=== PATIENT | female | born 1990 | race Caucasian/White ===

== ENCOUNTER 2024-05-15 00:52 | Inpatient (IN) | payer OTHER, SELFPAY ==
--- OUTSIDE RECORDS SUMMARY | 2024-05-14 21:56 | XMS_ITS | Clinical Summary ---
Author Organization [facility] Address [place], [place] [address] Care Team Providers Care Social Services Technician Name Role Phone BrunaPetrona MD Primary Care Provider Allergies No known active allergies Medications Medication Sig Dispensed Refills Start Date End Date Status albuterol HFA (PRO-AIR,VENTOLIN,PRO VENTIL) 90 mcg/actuation inhalerIndications:Co ugh Inhale 1-2 Puffs by mouth every 4 hours if needed. 1 Inhaler 5 05/30/2015 Active Breast Pump - PurchaseIndications:A t risk for ineffective Electric breast pump for home use. Gestation age at delivery: 40 weeks. Reason for need: return to work. Length of need: 12 months 1 unit 03/01/2019 Active vits62/FA/om3/dha/epa ( GUMMY ORAL) Take by mouth. Active Active Problems Problem Noted Date Diagnosed Date Pap smear for cervical cancer screening 10/28/19 Overview: 10/2023 NIL/HPV negative Plan: Pap/HPV due 10/2028 Encounter for supervision of normal in first trimester 10/20/2023 10/07/2023 Overview: Estimated Date of Delivery: 05/17/24 Patient's last menstrual period was 08/11/2023 (exact date). GBS- Vaginal/Rectal OB Strep B PCR Date Value Ref Range Status 04/19/2024 Negative Final 28wk labs- GLUCOSE,GESTATIONAL Date Value Ref Range Status 02/10/2024 128 70 - 139 mg/dL Final HEMOGLOBIN Date Value Ref Range Status 02/10/2024 11.7 (L) 12.0 - 16.0 g/dL Final TREPONEMA PALLIDUM Date Value Ref Range Status 02/10/2024 Non-Reactive Non-Reactive Final Last Tdap- 03/08/24 Last Flu vaccine- 2021 OB Labs: ABORH Date Value Ref Range Status 10/06/2023 A Rh Positive Final ANTIBODY SCREEN Date Value Ref Range Status 10/06/2023 Negative Negative Final TREPONEMA PALLIDUM Date Value Ref Range Status 10/06/2023 Non-Reactive Non-Reactive Final RUBELLA IGG ANTIBODY Date Value Ref Range Status 10/06/2023 8.26 >=1.00 Index Final INTERPRETATION Date Value Ref Range Status 10/06/2023 Positive Final Comment: Presence of detectable IgG antibodies. A positive result generally indicates exposure to the virus or previous vaccination, but is not an indication of active infection or stage of disease. HBSAG Date Value Ref Range Status 10/06/2023 Nonreactive Nonreactive Final HEPATITIS C ANTIBODY Date Value Ref Range Status 10/06/2023 Non-Reactive Non-Reactive Final Comment: Please note, per www.CDC.gov: If a patient is known to be at high risk of HCV infection, or is symptomatic, and the physician's suspicion of HCV infection is high, HCV RNA testing is often employed and is of diagnostic value, even after an initial negative anti-HCV test result. HIV-1/HIV-2 SCREEN Date Value Ref Range Status 10/06/2023 Non-Reactive Non-Reactive Final Comment: HIV-1 p24 and HIV-1/HIV-2 Ab Not Detected. HEMOGLOBIN Date Value Ref Range Status 10/06/2023 13.0 12.0 - 16.0 g/dL Final PLATELET COUNT Date Value Ref Range Status 10/06/2023 307 140 - 440 thou/cu mm Final Not on File OB History Para Term AB Living 2 1 1 0 0 1 SAB IAB Ectopic Multiple Live Births 0 0 0 0 1 # Outcome Date GA Lbr Michelet/2nd Weight Sex Delivery Anes PTL Lv 2 Current 1 Term 03/07/19 39w3d 3.23 kg (7 lb 2 oz) F Vag EPIDURAL N GIANCARLO Name: Gordon Past Medical History: . Date Asthma exercise induced H/O cold sores 10/25/2014 Varicella 1996 Past Surgical History: . Laterality Date WISDOM TEETH EXTRACTION 2007 #2 Problems (from 10/06/23 to present) No problems associated with this episode. Kate Epstein RN ....10/07/2023 11:25 AM H/O cold sores 10/25/2014 Estimated Date of Delivery Comme nts Yes 05/17/2024 Resolved Problems Problem Noted Date Diagnosed Date Resolved Date Encounter for supervision of normal first , third trimester 09/12/2018 10/07/2023 08/22/2018 10/07/2023 Overview: Component Latest Ref Rng & Units 02/16/2019 HEMOGLOBIN 12.0 - 16.0 g/dL 13.2 MCV 80 - 100 fL 95 Culture No Group B Streptococcus isolated. TREPONEMA PALLIDUM Negative Negative Estimated Date of Delivery: 03/11/19 Patient's last menstrual period was 06/04/2018. Last Tdap- 01/05/2019 Last Flu vaccine- 08/18/2018 Glucose (GTT) result- Component Latest Ref Rng & Units 12/08/2018 HEMOGLOBIN 12.0 - 16.0 g/dL 12.3 MCV 80 - 100 fL 98 GLUCOSE,GESTATIONAL 65 - 139 mg/dL 130 20 week US: IMPRESSION: 1.Cephalic presentation. 2.No intrinsic abnormalities noted on anatomic survey. 3.Composite ultrasound age 21 weeks 1 day with ALEK of 03/07/2019 with an earlier established ALEK of 03/11/2019. No Known Allergies Obstetric History T0 L0 SAB0 TAB0 Ectopic0 Multiple0 Live Births0 # Outcome Date GA Lbr Michelet/2nd Weight Sex Delivery Anes PTL Lv 1 Current Create lab flowsheet for OB labs- Component Latest Ref Rng & Units 07/26/2018 07/26/2018 07/26/2018 2:45 PM 2:45 PM 2:45 PM ANTIBODY SCREEN Negative Negative SPECIMEN EXPIRATION DATE/TIME 07/29/18 23:59 HEMOGLOBIN 12.0 - 16.0 g/dL 13.6 MCV 80 - 100 fL 96 RUBELLA IGG ANTIBODY Positive 3.51 HEMOGLOBIN A1C SCREENING <6.4 % 5.1 ABORH A Rh Positive HBSAG Nonreactive Nonreactive HEPATITIS C ANTIBODY Non-Reactive Non-Reactive HIV-1/HIV-2 ANTIBODY Non-Reactive Non-Reactive TREPONEMA PALLIDUM Negative Negative Past Medical History: Diagnosis Date ? ? H/O cold sores 10/25/2014 Past Surgical History: Procedure Laterality Date ? ? NO PREVIOUS SURGERY No data on file. Problems (from 07/26/18 to present) No problems associated with this episode. CHANDA Ash.....08/22/2018 8:04 AM Encounters Date Type Department Care Team Description 05/10/2024 4:05 PM CDT OB Encounter [facility] [address] [place] [address] Kayla Wisdom DO Care (39 weeks) 05/10/2024 Travel 05/03/2024 4:30 PM CDT OB Encounter [facility] [address] [place] [address] Petrona Mcfarland MD Care (38 weeks 0 days) 05/03/2024 Travel 05/02/2024 Telephone [facility] [address] [facility] [place] [address] Petrona Mcfarland MD 05/02/2024 Nurse Triage [facility] [address] [facility] [place] [address] Petrona Mcfarland MD Abdominal Pain 04/26/2024 10:55 AM CDT OB Encounter [facility] [address] [facility] [place] [address] Petrona Mcfarland MD Care (37 weeks ) 04/26/2024 Travel 04/19/2024 4:30 PM CDT OB Encounter [facility] [address] [facility] [place] [address] Petrona Mcfarland MD Care (36w/) 04/19/2024 Travel 04/04/2024 4:05 PM CDT OB Encounter [facility] [address] [place] [address] Petrona Mcfarland MD Care 04/04/2024 Travel 03/22/2024 11:20 AM CDT OB Encounter [facility] [address] [place] [address] Petrona Mcfarland MD Care (32 weeks 0 days ) 03/22/2024 Travel 03/08/2024 1:35 PM CDT OB Encounter [facility] [address] [place] [address] [address] Petrona Mcfarland MD Care (30 WKS - will get tdap) 03/08/2024 Travel from Last 3 Months Immunizations Name Administration Dates Next Due AMB Influenza, IIV4 PF (=>6 mos Flulaval,Fluzone Fluarix)(Flu Clinic Only) 07/09/2019 DTaP 02/06/1996,08/09/1991,05/25/1991 Hepatitis A (Adult) 06/02/2015 Hib Conjugate, Unspecified 11/08/2006,08/09/1991 ,05/25/1991 Inactivated Polio Vaccine 02/06/1996,08/09/1991, 05/25/1991 Influenza, IIV4 09/03/2022,07/04/2020,08/18/2018 Influenza, IIV4 (=>6mos) MDV 07/20/2021 MMR 11/12/2019,02/06/1996 Meningococcal Vaccine (Menactra) 08/19/2009 Meningococcal Vaccine (Menomune) 05/21/2004 Tdap 03/08/2024,01/05/2019,10/25/2014 Family History Medical History Relation Name Comments Good Health Brother Good Health Daughter Coronary artery disease Father 3v C ABG, stent placed Heart Disease Father 3 v CABG; sten ting Hyperlipidemia Father Hypertension Father Cancer Maternal Aunt Dementia Maternal Grandfather Stroke Maternal Grandfather Good Health Maternal Grandmother Deep vein thrombosis Mother Pulmonary embolism Mother Valvular heart disease Mother pablito l valve replacement Heart Disease Paternal Grandmother Depression Sister 1 Good Health Sister 2 Relation Name Status Comments Brother Alive Daughter Alive Father Alive Maternal Aunt Maternal Grandfather Alive Maternal Grandmother Alive Mother Alive Paternal Grandfather (Age 50's) ?lung cancer Paternal Grandmother (Age 83) he art failure? Sister 1 Alive Sister 2 Alive Social History Tobacco Use Types Packs/Day Years Used Date Smoking Tobacco: Never Smokeless Tobacco: Never Tobacco Cessation:Counseling Given: Yes Alcohol Use Standard Drinks/Week Comments Not Currently 0 (1 standard drink = 0.6 oz pur e alcohol) social PHQ-2 Answer Date Recorded PHQ-2 TOTAL SCORE 0 04/26/2024 Social Connections Answer Date Recorded Frequency of Communication with Friends and Fami ly Not on file 04/16/2023 Financial Resource Strain Answer Date R ecorded Difficulty of Paying Living Expenses Not on file 10/03/2021 Difficulty of Paying Living Expenses Not on file 10/03/2021 Estimated Date of Delivery Comme nts Yes 05/17/2024 Sex and Gender Information Value Date Recorded Sex Assigned at Not on file Gender Identity Not on file Sexual Orientation Not on file Obstetrics History Para Term AB IAB SAB Ectopic Multiple Livin g Live Births 2 1 1 0 0 0 0 0 0 1 1 Date Outcome GA Total Labor Labor/2nd/3rd Weight Sex Type Anes PTL Giancarlo A1 A5 Name Clin 2018 Term 39w 3d 17h 00m 3.23 kg (7 lb 2 oz) F Vag Epidur al N Livin g Gordon Tappe r Complications:None Delivery Location:[facility] Current Summary Episode Dates Number of Fetuses Estimated Date of Delivery 10/06/2023 - Present (05/14/2024) 05/17/2024 (set by Kate Epstein, RN on 10/06/2023 based on Alternate ALEK Entry) Dating Summary Based On ALEK GA Diff Last Menstrual Period on 08/11/2023 (Exact Date) 05/17/2024 Same Alternate ALEK Entry 05/17/2024 Working Overview and Plan Delivery Plans Planned delivery method:Vaginal Planned anesthesia:Epidural Vitals Pregravid Weight Height TWG (As of 05/14/2024) Pregrav id BMI 1.664 m (5' 5.5) Notes Progress Notes - OB Encounte r - 05/10/2024 - GA:39w0d 05/10/2024 - 39w0d - Kayla Wisdom DO Patient is here for routine care at 39w0d -specific issues: None Concerns today: has noticed some intermittent sharp pelvic discomfort. Occasional cramping. Nothing that feels particularly like contractions. No bleeding or loss of fluid Baby is moving well Discussed signs/symptoms of labor and when to call RTC in 1 week. Kayla Wisdom DO .................... 05/10/2024 4:29 PM Progress Notes - OB Encounte r - 05/03/2024 - GA:38w0d 05/03/2024 - 38w0d - Petrona Mcfarland MD SUBJECTIVE: Zacarias Najera is a 33 y.o. female at 38 weeks. Had sharp minute long episodes of pelvic pain yesterday from 9am to 1 pm. Was also having pelvic pressure. Since then discomfort resolved. No other concerns. See visit comments. OBJECTIVE: see OB vitals flow sheet ASSESSMENT : 38 weeks gestation with no complications PLAN: Labor signs and symptoms reviewed with patient including painful regular contractions or leaking fluid. RTC 1 weeks. Petrona Mcfarland MD .................... 05/03/2024 4:31 PM Progress Notes - OB Encounte r - 04/26/2024 - GA:37w0d 04/26/2024 - 37w0d - Petrona Mcfarland MD SUBJECTIVE: Zacarias Najera is a 33 y.o. female at 37 weeks. No concerns. See visit comments. OBJECTIVE: see OB vitals flow sheet ASSESSMENT : 37 weeks gestation with no complications Labor signs and symptoms reviewed with patient including painful regular contractions or leaking fluid. RTC 1 weeks. Petrona Mcfarland MD .................... 04/26/2024 11:15 AM Progress Notes - OB Encounte r - 04/19/2024 - GA:36w0d 04/19/2024 - 36w0d - Petrona Mcfarland MD SUBJECTIVE: Zacarias Najera is a 33 y.o. female at 36 weeks. No concerns. See visit comments. OBJECTIVE: see OB vitals flow sheet ASSESSMENT : 36 weeks gestation with no complications PLAN: Labor signs and symptoms reviewed with patient including painful regular contractions or leaking fluid. GBS today RTC 1 weeks. Petrona Mcfarland MD .................... 04/19/2024 4:43 PM Progress Notes - OB Encounte r - 04/04/2024 - GA:33w6d 04/04/2024 - 33w6d - Petrona Mcfarland MD SUBJECTIVE: Zacarias Najera is a 33 y.o. female at 33+6 weeks. No concerns. See visit comments. OBJECTIVE: see OB vitals flow sheet ASSESSMENT : 33+6 weeks gestation with no complications PLAN: labor signs and symptoms reviewed with patient including pain, cramping, bleeding or leaking fluid. RTC 2 weeks. Petrona Mcfarland MD .................... 04/04/2024 4:10 PM Progress Notes - OB Encounte r - 03/22/2024 - GA:32w0d 03/22/2024 - 32w0d - Petrona Mcfarland MD SUBJECTIVE: Zacarias Najera is a 33 y.o. female at 32 weeks. She woke with sciatic pain yesterday morning, it did improve as the day went on. No concerns. See visit comments. OBJECTIVE: see OB vitals flow sheet ASSESSMENT : 32 weeks gestation with no complications PLAN: labor signs and symptoms reviewed with patient including pain, cramping, bleeding or leaking fluid. RTC 2 weeks. Petrona Mcfarland MD .................... 03/22/2024 11:23 AM Progress Notes - OB Encounte r - 03/08/2024 - GA:30w0d 03/08/2024 - 30w0d - Petrona Mcfarland MD SUBJECTIVE: Zacarias Najera is a 33 y.o. female at 30 weeks. No concerns. See visit comments. OBJECTIVE: see OB vitals flow sheet ASSESSMENT : 30 weeks gestation with no complications PLAN: labor signs and symptoms reviewed with patient including pain, cramping, bleeding or leaking fluid. TDaP given today. RTC 2 weeks. Petrona Mcfarland MD .................... 03/08/2024 1:44 PM Progress Notes - OB Encounte r - 02/10/2024 - GA:26w1d 02/10/2024 - 26w1d - Petrona Mcfarland MD SUBJECTIVE: Zacarias Najera is a 33 y.o. female at 26+1 weeks. Has been having nocturnal leg cramps. No other concerns. See visit comments. OBJECTIVE: see OB vitals flow sheet ASSESSMENT : 26+1 weeks gestation with no complications PLAN: labor signs and symptoms reviewed with patient including pain, cramping, bleeding or leaking fluid. Diabetes, hemoglobin and syphilis screening today. RTC 4 weeks with TDaP. Petrona Mcfarland MD .................... 02/10/2024 2:56 PM Progress Notes - OB Encounte r - 01/13/2024 - GA:22w1d 01/13/2024 - w1d - Petrona Mcfarland MD SUBJECTIVE: Zacarias Najera is a 33 y.o. female at 22+1 weeks. No concerns. Baby is very active, change from last when she had an anterior placenta. See visit comments. OBJECTIVE: see OB vitals flow sheet ASSESSMENT : 22+1 weeks gestation with no complications PLAN: labor signs and symptoms reviewed with patient including pain, cramping, bleeding or leaking fluid. RTC 4 weeks with diabetes, hemoglobin and syphilis screening. Petrona Mcfarland MD .................... 01/13/2024 2:42 PM Progress Notes - OB Encounte r - 12/15/2023 - GA:18w0d 12/15/2023 - 18w0d - Petrona Mcfarland MD SUBJECTIVE: Zacarias Najera is a 32 y.o. female at 18 weeks. No concerns. See visit comments. OBJECTIVE: see OB vitals flow sheet ASSESSMENT : 18 weeks gestation with no complications PLAN: labor signs and symptoms reviewed with patient including pain, cramping, bleeding or leaking fluid. RTC 4 weeks. ultrasound in 2 weeks. Petrona Mcfarland MD .................... 12/15/2023 11:44 AM Progress Notes - OB Encounte r - 11/17/2023 - GA:14w0d 11/17/2023 - w0d - Petrona Mcfarland MD SUBJECTIVE: Zacarias Najera is a 32 y.o. female at 14 weeks. Has reoccurrence of left ear plugging. No concerns. See visit comments. OBJECTIVE: see OB vitals flow sheet TM with serous effusion on the left ASSESSMENT : 14 weeks gestation with no complications PLAN: Warning signs and symptoms reviewed with patient including pain, cramping, bleeding or leaking fluid. Try antihistamine for middle ear infusion. RTC 4 weeks. 20 week ultrasound ordered. Petrona Mcfarland MD .................... 11/17/2023 10:53 AM TER Progress Notes - OB Encounte r - 10/20/2023 - GA:10w0d 10/20/2023 - 10w0d - Petrona Mcfarland MD Images from the original note were not included. FIRST OB VISIT HPI: Zacarias Najera is a 32 y.o. female at 10w0d with lawton intrauterine here today for a initial OB exam. Estimated due date is Estimated Date of Delivery: 05/17/24 based on LMP and confirmed with ultrasound 10/20/2023. Nausea/Vomiting: yes, but getting better Breast tenderness: yes Fatigue: yes Bleeding: no Taking vitamins: yes Options of sequential screen, cell-free DNA testing, amniocentesis were discussed. Patient is interested in pursuing testing. Will check with insurance and let me know. AMA: no Previous : no OB History Para Term AB Living 2 1 1 0 0 1 SAB IAB Ectopic Multiple Live Births 0 0 0 0 1 # Outcome Date GA Lbr Michelet/2nd Weight Sex Delivery Anes PTL Lv 2 Current 1 Term 03/07/19 39w3d 3.23 kg (7 lb 2 oz) F Vag EPIDURAL N GIANCARLO Past Medical History: . Date Asthma exercise induced H/O cold sores 10/25/2014 Varicella 1996 Past Surgical History: . Laterality Date WISDOM TEETH EXTRACTION 2007 Family History Problem Relation Age of Onset Valvular heart disease Mother 63 mitral valve replacement Pulmonary embolism Mother Deep vein thrombosis Mother Heart Disease Father 46 3 v CABG; stenting Hypertension Father Coronary artery disease Father 3v CABG, stent placed Hyperlipidemia Father Depression Sister Good Health Sister Good Health Brother Good Health Daughter Cancer Maternal Aunt Good Health Maternal Grandmother Stroke Maternal Grandfather Dementia Maternal Grandfather Heart Disease Paternal Grandmother Social History Tobacco Use Smoking status: Never Smokeless tobacco: Never Substance Use Topics Alcohol use: Not Currently Comment: social Current Outpatient Medications Medication Sig albuterol HFA (PRO-AIR,VENTOLIN,PROVENTIL) 90 mcg/actuation inhaler Inhale 1-2 Puffs by mouth every 4 hours if needed. Breast Pump - Purchase Electric breast pump for home use. Gestation age at delivery: 40 weeks. Reason for need: return to work. Length of need: 12 months vits62/FA/om3/dha/epa ( GUMMY ORAL) Take by mouth. No current facility-administered medications for this visit. Medications have been reviewed by me and are current to the best of my knowledge and ability. ALLERGIES Patient has no known allergies. MENTAL HEALTH HISTORY History of psychiatric diagnosis: None Current mental health provider: not applicable Currently taking any psychiatric medications? Not Applicable INFECTION HISTORY Current Drug Use: none Relevant infection history from OB Questionnaire: none REVIEW OF SYSTEMS Comprehensive ROS complete and negative other than noted in HPI and on OB Questionnaire. PHYSICAL EXAM BP 119/80 (Cuff Site: Right Arm, Position: Sitting, Cuff Size: Adult Regular) Pulse 79 Ht 1.664 m (5' 5.5) Wt 68.3 kg (150 lb 9.6 oz) LMP 08/11/2023 (Exact Date) SpO2 100% BMI 24.68 kg/m?? General Appearance: Alert, appropriate appearance for age. No acute distress. HEENT Exam: Grossly normal. Neck/Thyroid Exam: Supple, no masses, nodes or enlargement. Lungs: Clear to auscultation bilaterally. Breast Exam: Not indicated. Cardiovascular Exam: Regular rate and rhythm. S1, S2, no murmur. Abd: Soft, non-tender, no masses or organomegaly. Skin: no rashes or lesions. Lymphatics: no nodes palpable. Psychiatric Exam: Alert and oriented x 3, appropriate affect. Pelvic Exam Vulva and vagina appear normal. Cervix closed, long. Uterus: 10 wk sz, nontender. Adnexa: not palpable. Pelvimetry: Adequate pelvis. ASSESSMENT/PLAN 32 y.o. at 10w0d with lawton intrauterine . ICD-10-CM 1. Encounter for supervision of other normal in first trimester Z34.81 2. 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 Demonstrates appropriate and health-seeking behaviors toward her . Verbalizes good understanding of care schedule and the importance of coming to each visit as scheduled. Start/continue vitamins. Reviewed labs. She was encouraged to call the office with any questions or concerns. Body mass index is 24.68 kg/m??. Diet and expected weight gain discussed with patient. DEPRESSION SCREEN No data to display Intervention: Not Depressed Petrona Mcfarland MD TER Progress Notes - OB Encounte r - 10/06/2023 - GA:8w0d 10/06/2023 - 8wd - Kate Epstein RN SUBJECTIVE: Zacarias Najera is a 32 y.o. female, , who presents for confirmation and ob education. Patient presents to the clinic with daughter. Had positive test at home. This was Planned, Desired. Patient was not on contraception. Date Reliability: definite ALEK based on LMP: Estimated Date of Delivery: 05/17/24 Current symptoms include: Nausea:Yes Vomiting:No Breast tenderness:No Vaginal bleeding:No Vaginal discharge:No Pelvic cramping:Yes brief, mild, very occasional Fatigue:Yes Previous Delivery Type: normal vaginal delivery Occupation of patient: Dental Hygienist Name of Partner or Father of baby: Ronni. MENSTRUAL HISTORY: Patient's last menstrual period was 08/11/2023 (exact date).: Cycle Regularity: regular, every 24 days Past Medical History: . Date H/O cold sores 10/25/2014 OB History Para Term AB Living 2 1 1 0 0 1 SAB IAB Ectopic Multiple Live Births 0 0 0 0 1 # Outcome Date GA Lbr Michelet/2nd Weight Sex Delivery Anes PTL Lv 2 Current 1 Term 03/07/19 39w3d 3.23 kg (7 lb 2 oz) F Vag EPIDURAL N GIANCARLO 5P'S SUBSTANCE ABUSE SCREEN FOR ALCOHOL, DRUGS AND TOBACCO: Did any of your parents have a problem with using alcohol or drugs? Yes Dad- alcohol in past Do any of your friends (peers) have problems with drug or alcohol use? No Does your partner have a problem with drug or alcohol use? No Before you knew you were , how often did you drink beer, wine, wine coolers or liquor or use any kind of drug? Rarely In the past month, how often did you drink beer, wine, wine coolers or liquor or use any kind of drug? Not at all How much did you smoke, vape or use tobacco or nicotine in any form before you knew you were ? Don't Smoke, Vape or use Tobacco Genetic Screening No data filed CURRENT MEDICATIONS: Current Outpatient Medications Medication Sig albuterol HFA (PRO-AIR,VENTOLIN,PROVENTIL) 90 mcg/actuation inhaler Inhale 1-2 Puffs by mouth every 4 hours if needed. Breast Pump - Purchase Electric breast pump for home use. Gestation age at delivery: 40 weeks. Reason for need: return to work. Length of need: 12 months drospirenone-ethinyl estradioL (TOSIN) 3-0.03 mg tablet Take 1 Tablet by mouth once daily. drospirenone-ethinyl estradioL (TOSIN) 3-0.03 mg tablet Take 1 tablet by mouth once daily. vits62/FA/om3/dha/epa ( GUMMY ORAL) Take by mouth. No current facility-administered medications for this visit. Medications have been reviewed by me and are current to the best of my knowledge and ability. ALLERGIES: Patient has no allergy information on record. OBJECTIVE: LMP 08/11/2023 (Exact Date) No results found for: PREGURINE ASSESSMENT/PLAN: ICD-10-CM 1. Encounter for supervision of other normal in first trimester Z34.81 EDUCATION/PATIENT INSTRUCTIONS - Advised patient to start/continue vitamin. - Discussed risk of using alcohol, tobacco, other drugs in . - Discussed healthy lifestyle in . - Provided copy of Beginnings book and book inserts, discussed [id number] medications, and follow up. - Encouraged patient to call clinic at [phone] with any vaginal bleeding, fluid leaking from vagina, severe abdominal pain, nausea with severe vomiting, fever higher than 100.4F, painful urination, headache not relieved by Tylenol, or other concerns - labs completed with today's visit. - Patient informed to schedule 1st trimester dating ultrasound between 7-10 weeks. - Initial OB appointment with FP/OB scheduled. PHQ-9, and COVID-19 vaccine discussion to be completed at this visit. Future Appointments Date Time Provider Department Center 10/20/2023 9:15 AM Petrona Mcfarland MD [facility] Kate Epstein RN .................... 10/06/2023 11:12 AM TER Last Filed Vital Signs Vital Sign Reading Time Taken Comments Blood Pressure 119/71 05/10/2024 4:01 PM CDT Pulse 73 05/10/2024 4:01 PM CDT Temperature 36.8 ??C (98.3 ??F) 10/31/2023 6:54 PM CS T Respiratory Rate 14 10/31/2023 6:54 PM [facility]STER Oxygen Saturation 99% 05/03/2024 4:26 PM CDT Inhaled Oxygen Concentration - - Weight 82.4 kg (181 lb 9.6 oz) 05/10/2024 4:01 P M CDT Height 166.4 cm (5' 5.5) 10/20/2023 9:04 AM W[facility]STER Body Mass Index 29.76 10/20/2023 9:04 AM WRISTER Plan of Treatment Upcoming Encounters Date Type Department Care Team (Late st Contact Info) Description 05/17/2024 4:05 PM CDT OB Encounter [facility] [address] [place] [place] [address] Petrona Mcfarland MD [address] [place] [address] Health Maintenance Due Date Last Done Comments COVID-19 vaccine series (2022-24 season) 2023 Influenza for age 9-49 06/03/2024 2, 07/20/2021, 07/04/2020, Additional history exists BMI (ht and wt on same day) for age 18+ 10/20/2024 10/20/2023, 10/06/2023, 07/04/2020, Additional history exists Depression screening for age 12+ 04/26/2025 04/26/2024, 04/17/2019, 07/28/2018, Additional history exists Pap test for age 21-65 10/20/2028 , 10/20/2023, 04/17/2019, Additional history exists Tetanus booster 03/08/2034 03/08/2024, 04/0 01/2019, 10/25/2014 HIV for age 15-65 Completed 10/06/2023, 07/26/2018 Hepatitis C screening for age 18-79 Completed 10/06/2023, 07/26/2018 Tdap Completed 03/08/2024, 0 01/2019, 10/25/2014 Pneumococcal series for age 6-64 Aged Out No longer eligible based on patient's age to complete this topic Procedures Procedure Name Priority Date/Time Associated Diagnosis Comments VAGINAL/RECTAL OB STREP PCR Routine 04/19/2024 4:35 PM CDT Encounter for supervision of other normal in third trimester HPV THIN PREP Routine 10/20/2023 10:00 AM WRISTER Screening for cervical cancer ANTI HIV 1/2 Routine 10/06/2023 12:23 PM WRISTER Encounter for supervision of other normal in first trimester ANTI HCV Routine 10/06/2023 12:23 PM WRISTER Encounter for supervision of other normal in first trimester from Last 3 Months or Most Recently Relevant to Health Maintenance Results * VAGINAL/RECTAL OB STREP PCR (04/19/2024 4:35 PM CDT) Vaginal/Rectal OB Strep B PCR Negative 04/22/2024 10:04 AM CDT [facility] Other (Vaginal/Rectal) Non-Blood / Unknown 04/19/2024 4:35 PM CDT 04/19/2024 5:14 PM CDT Petrona Mcfarland MD MICROBIOLOGY [facility] [address] [place] [id number], [place] * HPV HIGH RISK (10/20/2023 10:00 AM WRISTER) TYPE 16 Negative Negative 10/24/2023 3:53 PM WRISTER [facility] TYPE 18 Negative Negative 10/24/2023 3:53 PM WRISTER [facility] OTHER HIGH RISK TYPES Negative Negative 10/24/2023 3:53 PM WRISTER [facility] Other (Cervical) Non-Blood / Unknown 10/20/2023 10:00 AM WRISTER 10/20/2023 6:08 PM WRISTER Narrative [facility] - 10/24/2023 3:53 PM WRISTER HPV types 16, 18, 31, 33, 35, 39, 45, 51, 52, 56, 58, 59, 66 and 68 DNA were undetectable or below the pre-set threshold. Methodology: Adolfo Hay 4800 HPV Test Petrona Mcfarland MD MICROBIOLOGY Performing Organization Address [facility]/ZIP Co de Phone Number [facility] [address] [place] [address], [place] * ANTI HCV (10/06/2023 12:23 PM WRISTER) Pathologist [facility] HEPATITIS C ANTIBODY Non-Reacti ve Non-React yarely 10/06/2023 9:40 PM WRISTER [facility] Comment:Please note, per www .CDC.gov: If a patient is known to be at high risk of HCV infection, or is symptomatic, and the physician's suspicion of HCV infection is high, HCV RNA testing is often employed and is of diagnostic value, even after an initial negative anti-HCV test result. Blood BLOOD SPECIMEN / Unknown Venipuncture / Unknown 10/06/2023 12:23 PM WRISTER 10/06/2023 12:25 PM WRISTER Petrona Mcfarland MD SEND OUTS Performing Organization Address City/[facility]/ZIP Co de Phone Number [facility] [address] [place] [id number], [place] * ANTI HIV 1/2 (10/06/2023 12:23 PM WRISTER) HIV-1/HIV-2 SCREEN Non-Reacti ve Non-Reacti ve 10/06/2023 9:44 PM WRISTER [facility] Comment:HIV-1 p24 and HIV-1/ HIV-2 Ab Not Detected. Blood BLOOD SPECIMEN / Unknown Venipuncture / Unknown 10/06/2023 12:23 PM WRISTER 10/06/2023 12:25 PM WRISTER Petrona Mcfarland MD SEND OUTS [facility] [address] [place] [address], from Last 3 Months or Most Recently Relevant to Health Maintenance Care Teams Social Services Technician Relationship Specialty Start Date End Date Petrona Mcfarland MD [address] [place] [address] PCP - General Family Practice 09/12/18
[2024-05-14 22:08] VITALS: BP 138/74; PULSE 71; RESP 18; O2SAT 100
[2024-05-14 22:10] VITALS: TEMP 36.6
[2024-05-15] VITALS (9 sets, daily range): BP systolic 116–128; BP diastolic 67–78; PULSE 63–81; RESP 16; TEMP 36.6–36.7; O2SAT 96; BMI 31.0
[2024-05-15 01:42] LABS: Basophils Percent Auto 0.1 % (0.0-3.0); Eosinophils Percent Auto 0.4 % (0.0-7.0); Hematocrit 37.3 % (33.0-51.0); Hemoglobin* 12.3 gm/dL (12.0-16.0); Immature Granulocytes Pct Auto 0.7 %; Lymphocytes Percent Auto 18.7 % (20-44); Mean Corpuscular HGB Conc 33 gm/dL (32-36); Mean Corpuscular Hemoglobin 31 pg (26-34); Mean Corpuscular Volume 95 fL (80-100); Monocytes Percent Auto 6.5 % (0.0-11.0); Neutrophils Percent Auto 73.6 % (42.0-72.0); Platelet Count* 227 K/uL (140-440); RDW Coefficient of Variation % 13.5 % (11.5-15.5); Red Blood Count 3.93 m/uL (4.00-5.20); White Blood Count* 13.76 K/uL (4.50-11.00)
[2024-05-15 01:47] LABS: Slide Review Reflex No
--- NOTE | 2024-05-15 07:47 | P.OBHP_ITS ---
OB - H&P; HPI Antepartum History of Present Illness Date Seen: 05/15/24 Chief complaint: OB Outpatient Narrative: aZcarias Najera is a 33 year old female who came in last evening for worsening contractions that started at 8 am yesterday. No leaking fluid. Feeling good movement. She was found to be 3 cm on presentation and changed to 4 cm two hours later. She has been moderately comfortable overnight. Not feeling contractions as strongly or as frequently now (about every 10-15 minutes). History of Present Dating criteria: other (and 1st trimester ultrasound) care: good care Ultrasounds: normal 1st trimester US Medical complications: none Labs Blood type: A (+) positive Rubella: immune RPR/VDLR: nonreactive GBS status: negative HBsAG: negative Review of Systems Status of ROS: Reports: 10 or more systems reviewed and unremarkable except as noted in History and below Meds Home Medications and Allergies Home Medications ?Medication ?Instructions ?Recorded ?Confirmed ?Type No Known Home Medications 05/14/24 05/14/24 History Allergies Allergy/AdvReac Type Severity Reaction Status Date / Time No Known Drug Allergies Allergy Verified 05/14/24 22:07 OB - H&P: Exam Physical Exam: Vital signs: Temp Pulse Resp BP Pulse Ox 98 F 75 16 128/75 96 05/15/24 07:42 05/15/24 07:41 05/15/24 07:43 05/15/24 07:41 05/15/24 01:50 Constitutional: Constitutional: no acute distress Detailed Labor and Delivery Exam: Patient Gravid: Yes Dilation (cm): 4 Effacement (%): 60 Cervix position: posterior Consistency: medium Contraction frequency (min): 10 Tachysystole: No Contraction intensity: Mild Comments: Baby cephalic by Juan. EFW 3500g. Fetus (Single): Station: -3 Amniotic Membrane Status: intact Heart Rate Baseline: 125 Monitor Accelerations: Present Monitor Decelerations: None Intermediate Variability: Moderate (6-25) OB - Results Labs Labs: Short CBC 05/15/24 Range/Units 01:35 WBC 13.76 H (4.50-11.00) K/uL Hgb 12.3 (12.0-16.0) gm/dL Hct 37.3 (33.0-51.0) % Plt Count 227 (140-440) K/uL OB - A/P Antepartum Assessment and Plan (1) Uterine contractions at greater than 20 weeks of gestation: Status: Acute Plan Patient is not currently in active labor. She has not made change overnight. Contractions have spaced out and she is comfortable. Discussed induction but since we are on divert right now, we are not able to do an elective induction. Discussed discharge home and follow up if contractions worsen, if she has decreased movement, or if she has leaking fluid consistent with rupture of membranes. Follow up in [address] Mcfarland. Return sooner if any concerns in the meantime.
--- OUTSIDE RECORDS SUMMARY | 2024-05-16 08:46 | XMS_ITS | Clinical Summary ---
Author Organization [facility] Address [place], [place] [address] Care Team Providers Care Fructose Loader Name Role Phone BrunaPetrona MD Primary Care [...] Encounters Date Type Department Care Team Description 05/15/2024 Orders Only [facility] Scanner 1 scan: (1-Ord) [facility], LAB RESULTS, 05/15/2024 05/10/2024 4:05 PM CDT OB Encounter [facility] [address] [facility] [place] [address] Kayla Wisdom DO Care (39 weeks) 05/10/2024 Travel 05/03/2024 4:30 PM CDT OB Encounter [address] [place] [address] Petrona Mcfarland MD Care (38 weeks 0 days) 05/03/2024 Travel 05/02/2024 Telephone [place] [address] [place] [place] [address] Petrona Mcfarland MD 05/02/2024 Nurse Triage [facility] [address] [place] [address] Petrona Mcfarland MD Abdominal Pain 04/26/2024 10:55 AM CDT OB Encounter [facility] [address] [place] [address] Petrona Mcfarland MD Care (37 weeks ) 04/26/2024 Travel 04/19/2024 4:30 PM CDT OB Encounter [place] [address] [facility] [place] [address] Petrona Mcfarland MD Care (36w/) 04/19/2024 Travel 04/04/2024 4:05 PM CDT OB Encounter [facility] [address] [facility] [address] Petrona Mcfarland MD Care 04/04/2024 Travel 03/22/2024 11:20 AM CDT OB Encounter [facility] [address] [place] [address] Petrona Mcfarland MD Care (32 weeks 0 days ) 03/22/2024 Travel 03/08/2024 1:35 PM CDT OB Encounter [facility] [address] [place] [address] Petrona Mcfarland MD Care (30 WKS - [...] Livin g Gordon Tappe r Complications:None Delivery Location:[facility] Current Summary Episode Dates Number of Fetuses Estimated Date of Delivery 10/06/2023 - Present (05/16/2024) 05/17/2024 (set by Kate Epstein, RN on 10/06/2023 based on Alternate ALEK Entry) Dating Summary Based On ALEK GA Diff Last Menstrual Period on 08/11/2023 (Exact Date) 05/17/2024 Same Alternate ALEK Entry 05/17/2024 Working Overview and Plan Delivery Plans Planned delivery method:Vaginal Planned anesthesia:Epidural Vitals Pregravid Weight Height TWG (As of 05/16/2024) Pregrav id BMI 1.664 m (5' 5.5) [...] r - 05/03/2024 - GA:38w0d 05/03/2024 - - Petrona Mcfarland MD SUBJECTIVE: Zacarias Najera [...] contractions or leaking fluid. RTC 1 weeks. Pterona Mcfarland MD .................... 05/03/2024 4:31 PM Progress Notes - OB Encounte r - 04/26/2024 - GA:37w0d 04/26/2024 - - Petrona Mcfarland MD SUBJECTIVE: Zacarias Najera [...] 03/22/2024 11:23 AM [facility] GA:30w0d 03/08/2024 - [...] 03/08/2024 1:44 PM [facility]10[facility] - GA:26w1d 02/10/2024 - w - Petrona Mcfarland MD SUBJECTIVE: Zacarias Najera [...] r - 01/13/2024 - GA:22w1d 01/13/2024 - - Petrona Mcfarland MD SUBJECTIVE: Zacarias Najera [...] r - 12/15/2023 - GA:18w0d 12/15/2023 - 18wd - Petrona Mcfarland MD SUBJECTIVE: Zacarias Najera [...] r - 11/17/2023 - GA:14w0d 11/17/2023 - 14w0d - Petrona Mcfarland MD SUBJECTIVE: Zacarias Najera [...] Petrona Mcfarland MD .................... 11/17/2023 10:53 AM E COUNSELOR Progress Notes - OB Encounte r - [...] Z34.81 2. Screening for cervical cancer Z12.4 SEWAGE [employer]ICULATION DRAFTING OFFICER THIN PREP PAP SCREEN IMAGED [[id number]] Satisfactory exam. Demonstrates appropriate and health-seeking behaviors [...] display Intervention: Not Depressed Petrona Mcfarland MD E COUNSELOR Progress Notes - OB Encounte r - [...] of Beginnings book and book inserts, discussed xqin-but-sofaetg medications, and follow up. - Encouraged patient to call clinic at [phone] with any vaginal bleeding, fluid leaking from [...] Center 10/20/2023 9:15 AM [facility] Kate Epstein RN .................... 10/06/2023 11:12 AM E COUNSELOR Last Filed Vital Signs Vital Sign Reading Time Taken Comments Blood Pressure 119/71 05/10/2024 4:01 PM CDT Pulse 73 05/10/2024 4:01 PM CDT Temperature 36.8 ??C (98.3 ??F) 10/31/2023 6:54 PM CS T Respiratory Rate 14 10/31/2023 6:54 PM PHONE COUNSELOR Oxygen Saturation 99% 05/03/2024 4:26 PM CDT Inhaled Oxygen Concentration - - Weight 82.4 kg (181 lb 9.6 oz) 05/10/2024 4:01 P M CDT Height 166.4 cm (5' 5.5) 10/20/2023 9:04 AM PHONE COUNSELOR Body Mass Index 29.76 10/20/2023 9:04 AM PHONE COUNSELOR Plan of Treatment Upcoming Encounters Date Type Department Care Team (Late st Contact Info) Description 05/17/2024 4:05 PM CDT OB Encounter [facility] [address] [place] [address] Petrona Mcfarland MD [address] [place] [address] Health Maintenance Due Date Last Done Comments COVID-19 vaccine series (2022- season) 2023 Influenza for age 9-49 06/03/2024 2, 07/20/2021, 07/04/2020, Additional history exists BMI (ht and wt on same day) for age 18+ 10/20/2024 10/20/2023, 10/06/2023, 07/04/2020, Additional history exists Depression screening for age 12+ 04/26/2025 04/26/2024, 04/17/2019, 07/28/2018, Additional history exists Pap test for age 21-65 10/20/2028 , 10/20/2023, 04/17/2019, Additional history exists Tetanus booster 03/08/2034 03/08/2024, 0 01/2019, 10/25/2014 HIV for age 15-65 Completed 10/06/2023, 07/26/2018 Hepatitis C screening for age 18-79 Completed 10/06/2023, 07/26/2018 Tdap Completed 03/08/2024, 0 01/2019, 10/25/2014 Pneumococcal series for age 6-64 Aged Out No longer eligible based on patient's age to complete this topic Procedures Procedure Name Priority Date/Time Associated Diagnosis Comments SCAN-LABORATORY REPORT 05/15/2024 12:00 AM CDT VAGINAL/RECTAL OB STREP PCR Routine 04/19/2024 4:35 PM CDT Encounter for supervision of other normal in third trimester HPV THIN PREP Routine 10/20/2023 10:00 AM PHONE COUNSELOR Screening for cervical cancer ANTI HIV 1/2 Routine 10/06/2023 12:23 PM PHONE COUNSELOR Encounter for supervision of other normal in first trimester ANTI HCV Routine 10/06/2023 12:23 PM PHONE COUNSELOR Encounter for supervision of other normal in first trimester from Last 3 Months or Most Recently Relevant to Health Maintenance Results * SCAN-LABORATORY REPORT (05/15/2024 12:00 AM CDT) Scanner OTHER * VAGINAL/RECTAL OB STREP PCR (04/19/2024 4:35 PM CDT) Vaginal/Rectal OB Strep B PCR Negative 04/22/2024 10:04 AM CDT [facility] Other (Vaginal/Rectal) Non-Blood / Unknown 04/19/2024 4:35 PM CDT 04/19/2024 5:14 PM CDT Petrona Mcfarland MD MICROBIOLOGY Performing Organization Address [facility] de Phone Number [facility] [address] [place] [address], * HPV HIGH RISK (10/20/2023 10:00 AM PHONE COUNSELOR) TYPE 16 Negative Negative 10/24/2023 3:53 PM PHONE COUNSELOR [facility] TYPE 18 Negative Negative 10/24/2023 3:53 PM PHONE COUNSELOR [facility] OTHER HIGH RISK TYPES Negative Negative 10/24/2023 3:53 PM PHONE COUNSELOR [facility] Other (Cervical) Non-Blood / Unknown 10/20/2023 10:00 AM PHONE COUNSELOR 10/20/2023 6:08 PM PHONE COUNSELOR Narrative [facility] - 10/24/2023 3:53 PM PHONE COUNSELOR HPV types 16, 18, 31, 33, 35, 39, 45, 51, 52, 56, 58, 59, 66 and 68 DNA were undetectable or below the pre-set threshold. Methodology: Adolfo Hay 4800 HPV Test Petrona Mcfarland MD MICROBIOLOGY Performing Organization Address [facility] de Phone Number [facility] [address] [place] [address], * ANTI HCV (10/06/2023 12:23 PM PHONE COUNSELOR) HEPATITIS C ANTIBODY Non-Reacti ve Non-React yarely 10/06/2023 9:40 PM PHONE COUNSELOR [facility] Comment:Please note, per www .CDC.gov: If a patient is known to be at high risk of HCV infection, or is symptomatic, and the physician's suspicion of HCV infection is high, HCV RNA testing is often employed and is of diagnostic value, even after an initial negative anti-HCV test result. Blood BLOOD SPECIMEN / Unknown Venipuncture / Unknown 10/06/2023 12:23 PM PHONE COUNSELOR 10/06/2023 12:25 PM PHONE COUNSELOR Petrona Mcfarland MD SEND OUTS [facility] [address] [address], [place] * ANTI HIV 1/2 (10/06/2023 12:23 PM PHONE COUNSELOR) HIV-1/HIV-2 SCREEN Non-Reacti ve Non-Reacti ve 10/06/2023 9:44 PM PHONE COUNSELOR [facility] Comment:HIV-1 p24 and HIV-1/ HIV-2 Ab Not Detected. Blood BLOOD SPECIMEN / Unknown Venipuncture / Unknown 10/06/2023 12:23 PM PHONE COUNSELOR 10/06/2023 12:25 PM PHONE COUNSELOR Petrona Mcfarland MD SEND OUTS Performing Organization Address City/[facility]/ZIP Co de Phone Number [facility] [address] [place] [address], [place] from Last 3 Months or Most Recently Relevant to Health Maintenance Care Teams Fructose Loader Relationship Specialty Start Date End Date Petrona Mcfarland MD [address] [facility] [place] [address] PCP - General Family Practice 09/12/18
[2024-05-18 01:25] LABS: Rapid Plasma Reagin (RPR) Non Reactive (Non Reactive)
--- NOTE | 2024-05-18 09:48 | PC.OBNST ---
NST Note NST Note Start: 05/14/24 22:00 Freq: ONCE Status: Cancelled Protocol: Document 05/15/24 09:47 JAIN (Rec: 05/18/24 09:48 JAIN [id number]) NST Note 2 Para (# of births) 1 EDC 05/17/24 Gestational Age In Weeks & Days 40 Weeks & 1 Days Patient Presented with Complaint(s) of Contractions/cramping Reactive Yes Appropriate for Gestational Age Yes MANOLO Dyson Date 05/15/24 Reactive Yes Appropriate for Gestational Age Yes MANOLO Coronado Date 05/18/24 OB NST charge Yes Complete NST Note via Write Note Yes The provider's electronic signature indicates the NST is reactive/appropriate for gestational age. *Note to provider: If an addendum is required, open the patient's chart and click on the note under the Nurse/Allied Health tab.
== END 2024-05-15 08:30 | disposition home or self-care (01) | DRG 833 ==
LOC: OB OUT 00:52 → OB 07:44
PROVIDERS: Admitting Provider Family Medicine; PCP Family Medicine; Visit Provider Family Medicine
DX: O47.1 False labor at or after 37 completed weeks of gestation (principal); Z3A.39 39 weeks gestation of pregnancy
CPT/HCPCS: 36415; 59025; 85025; 86592; 86850; 86900; 86901; G0463

== ENCOUNTER 2024-05-22 06:01 | Inpatient (IN) | payer OTHER, SELFPAY ==
[2024-05-22] VITALS (53 sets, daily range): BP systolic 96–165; BP diastolic 48–80; PULSE 34–143; RESP 18; TEMP 36.4–37; O2SAT 81–100; BMI 31.6
--- OUTSIDE RECORDS SUMMARY | 2024-05-22 06:06 | XMS_ITS | Clinical Summary ---
Author Organization [employer] [facility] Address [place], [place] [address] Care Team Providers Care Plastic Surgery Specialist Name Role Phone BrunaPetrona MD Primary Care [...] Encounters Date Type Department Care Team Description 05/17/2024 4:05 PM CDT OB Encounter [facility] [address] [facility] [place] [address] Petrona Mcfarland MD Care (40 wk/Feeling just fine, no contractions./) 05/17/2024 Travel 05/17/2024 Telephone [facility] [address] [place] [address] Petrona Mcfarland MD Appointment 05/15/2024 Orders Only [facility] Scanner 1 scan: (1-Ord) [facility], [facility], 05/15/2024 05/15/2024 Orders Only [facility] Scanner 1 scan: (1-Ord) [facility], LAB RESULTS, 05/15/2024 05/10/2024 4:05 PM CDT OB Encounter [facility] [address] [place] [address] Kayla Wisdom DO Care (39 weeks) 05/10/2024 Travel 05/03/2024 4:30 PM CDT OB Encounter [facility] [address] [facility] [place] [address] Petrona Mcfarland MD Care (38 weeks 0 days) 05/03/2024 Travel 05/02/2024 Telephone [facility] Arely Magdaleno [facility] [address] Petrona Mcfarland MD 05/02/2024 Nurse Triage [facility] [address] [place] [address] Petrona Mcfarland MD Abdominal Pain 04/26/2024 10:55 AM CDT OB Encounter [facility] [address] [facility] [address] Petrona Mcfarland MD Care (37 weeks ) 04/26/2024 Travel 04/19/2024 4:30 PM CDT OB Encounter [facility] [address] [place] [address] Petrona Mcfarland MD Care (36w/) 04/19/2024 Travel 04/04/2024 4:05 PM CDT OB Encounter [facility] [address] [facility] [address] Petrona Mcfarland MD Care 04/04/2024 Travel 03/22/2024 11:20 AM CDT OB Encounter [facility] [address] [place] [address] Petrona Mcfarland MD Care (32 weeks 0 days ) 03/22/2024 Travel 03/08/2024 1:35 PM CDT OB Encounter [facility] [address] [place] [address] [address] Petrona Mcfarland MD Care (30 WKS - [...] Livin g Gordon Tappe r Complications:None Delivery Location:[facility] Current Summary Episode Dates Number of Fetuses Estimated Date of Delivery 10/06/2023 - Present (05/22/2024) 05/17/2024 (set by Kate Epstein RN on 10/06/2023 based on Alternate ALEK Entry) Dating Summary Based On ALEK GA Diff Last Menstrual Period on 08/11/2023 (Exact Date) 05/17/2024 Same Alternate ALEK Entry 05/17/2024 Working Overview and Plan Delivery Plans Planned delivery method:Vaginal Planned anesthesia:Epidural Vitals Pregravid Weight Height TWG (As of 05/22/2024) Pregrav id BMI 1.664 m (5' 5.5) Notes Progress Notes - OB Encounte r - 05/17/2024 - GA:40w0d 05/17/2024 - 40w0d - Petrona Mcfarland MD SUBJECTIVE: Zacarias Najera is a 33 y.o. female at 40 weeks. Had contractions on 05/14, went to center and went from 3 cm to 4 cm and was admitted. She ended up staying overnight but contractions stopped and cervix didn't change since admission. She was sent home and hasn't had regular contractions since. See visit comments. OBJECTIVE: see OB vitals flow sheet ASSESSMENT : 40 weeks gestation with no complications PLAN: Labor signs and symptoms reviewed with patient including painful regular contractions or leaking fluid. Induction scheduled for next week if she doesn't go into labor. Petrona Mcfarland MD .................... 05/17/2024 11:09 AM Progress Notes - OB Encounte r [...] 03/22/2024 11:23 AM [facility] GA:30w0d 03/08/2024 - 30wd - Petrona Mcfarland MD SUBJECTIVE: Zacarias Najera [...] 03/08/2024 1:44 PM [facility] - GA:26w1d 02/10/2024 - - Petrona Mcfarland MD SUBJECTIVE: Zacarias [...] Petrona Mcfarland MD .................... 11/17/2023 10:53 AM ENT DEVELOPMENT MANAGER Progress Notes - OB Encounte r - [...] Z34.81 2. Screening for cervical cancer Z12.4 [employer] THIN PREP PAP SCREEN IMAGED [[id number]] Satisfactory exam. Demonstrates appropriate and health-seeking behaviors [...] display Intervention: Not Depressed Petrona Mcfarland MD ENT DEVELOPMENT MANAGER Progress Notes - OB Encounte r - 10/06/2023 - GA:8w0d 10/06/2023 - 8w0d - Kate Epstein RN SUBJECTIVE: Zacarias Najera [...] of Beginnings book and book inserts, discussed [id number] medications, and follow up. - Encouraged patient to call clinic at [phone] with any vaginal bleeding, fluid leaking from [...] Center 10/20/2023 9:15 AM Petrona Mcfarland MD NFLD ALYX Epstein RN .................... 10/06/2023 11:12 AM ENT DEVELOPMENT MANAGER Last Filed Vital Signs Vital Sign Reading Time Taken Comments Blood Pressure 115/74 05/17/2024 10:44 AM CDT Pulse 89 05/17/2024 10:44 AM CDT Temperature 36.8 ??C (98.3 ??F) 10/31/2023 6:54 PM CS T Respiratory Rate 14 10/31/2023 6:54 PM CONTENT DEVELOPMENT MANAGER Oxygen Saturation 97% 05/17/2024 10:44 AM CDT Inhaled Oxygen Concentration - - Weight 82.6 kg (182 lb 3.2 oz) 05/17/2024 10:44 AM CDT Height 166.4 cm (5' 5.5) 10/20/2023 9:04 AM CONTENT DEVELOPMENT MANAGER Body Mass Index 29.86 10/20/2023 9:04 AM CONTENT DEVELOPMENT MANAGER Plan of Treatment Health Maintenance Due Date Last Done Comments [...] Comments SCAN-LABORATORY REPORT 05/15/2024 12:00 AM CDT SCAN-LABORATORY REPORT 05/15/2024 12:00 AM CDT VAGINAL/RECTAL OB STREP PCR Routine 04/19/2024 4:35 PM CDT Encounter for supervision of other normal in third trimester HPV THIN PREP Routine 10/20/2023 10:00 AM CONTENT DEVELOPMENT MANAGER Screening for cervical cancer ANTI HIV 1/2 Routine 10/06/2023 12:23 PM CONTENT DEVELOPMENT MANAGER Encounter for supervision of other normal in first trimester ANTI HCV Routine 10/06/2023 12:23 PM CONTENT DEVELOPMENT MANAGER Encounter for supervision of other normal in first trimester from Last 3 Months or Most Recently Relevant to Health Maintenance Results * SCAN-LABORATORY REPORT (05/15/2024 12:00 AM CDT) Only the most recent of2 resultswithin the time period is included. Scanner OTHER * VAGINAL/RECTAL OB STREP PCR (04/19/2024 4:35 PM CDT) Vaginal/Rectal OB Strep B PCR Negative 04/22/2024 10:04 AM CDT [facility] Other (Vaginal/Rectal) Non-Blood / Unknown 04/19/2024 4:35 PM CDT 04/19/2024 5:14 PM CDT Petrona Mcfarland MD [facility]CROBIOLOGY [facility] [address] [place], [place] [address] * HPV HIGH RISK (10/20/2023 10:00 AM CONTENT DEVELOPMENT MANAGER) TYPE 16 Negative Negative 10/24/2023 3:53 PM CONTENT DEVELOPMENT MANAGER [facility] TRAL LAB[facility]ORY TYPE 18 Negative Negative 10/24/2023 3:53 PM CONTENT DEVELOPMENT MANAGER [facility] TRA LABORATORY OTHER HIGH RISK TYPES Negative Negative 10/24/2023 3:53 PM CONTENT DEVELOPMENT MANAGER [facility] Other (Cervical) Non-Blood / Unknown 10/20/2023 10:00 AM CONTENT DEVELOPMENT MANAGER 10/20/2023 6:08 PM CONTENT DEVELOPMENT MANAGER Narrative [facility] - 10/24/2023 3:53 PM CONTENT DEVELOPMENT MANAGER HPV types 16, 18, 31, 33, 35, 39, 45, 51, 52, 56, 58, 59, 66 and 68 DNA were undetectable or below the pre-set threshold. Methodology: Adolfo Hay 4800 HPV Test Petrona Mcfarland MD MICROBIOLOGY Performing Organization Address City/[facility]/ZIP Co de Phone Number [facility] [address] [place] [address], [place] * ANTI HCV (10/06/2023 12:23 PM CONTENT DEVELOPMENT MANAGER) Pathologist [facility] HEPATITIS C ANTIBODY Non-Reacti ve Non-React yarely 10/06/2023 9:40 PM CONTENT DEVELOPMENT MANAGER [facility] Comment:Please note, per www .CDC.gov: If a patient is known to be at high risk of HCV infection, or is symptomatic, and the physician's suspicion of HCV infection is high, HCV RNA testing is often employed and is of diagnostic value, even after an initial negative anti-HCV test result. Blood BLOOD SPECIMEN / Unknown Venipuncture / Unknown 10/06/2023 12:23 PM CONTENT DEVELOPMENT MANAGER 10/06/2023 12:25 PM CONTENT DEVELOPMENT MANAGER Petrona Mcfarland MD SEND OUTS Performing Organization Address City/[facility]/ZIP Co de Phone Number [facility] [address] [place] [id number], [place] * ANTI HIV 1/2 (10/06/2023 12:23 PM CONTENT DEVELOPMENT MANAGER) Pathologist [facility] HIV-1/HIV-2 SCREEN Non-Reacti ve Non-Reacti ve 10/06/2023 9:44 PM CONTENT DEVELOPMENT MANAGER [facility] TRAL [facility] Comment:HIV-1 p24 and HIV-1/ HIV-2 Ab Not Detected. Blood BLOOD SPECIMEN / Unknown Venipuncture / Unknown 10/06/2023 12:23 PM CONTENT DEVELOPMENT MANAGER 10/06/2023 12:25 PM CONTENT DEVELOPMENT MANAGER Petrona Mcfarland MD SEND OUTS [facility] [address] [place] [address], from Last 3 Months or Most Recently Relevant to Health Maintenance Care Teams Plastic Surgery Specialist Relationship Specialty Start Date End Date Petrona Mcfarland MD [address] [place] [place] [address] PCP - General Family Practice 09/12/18
--- NOTE | 2024-05-22 07:13 | P.OBHP_ITS ---
OB - H&P: HPI Labor/Induction History of Present Illness Date Seen: 05/22/24 Chief Complaint: The patient is a 33 year old 2 para 1 at 40+5 weeks gestation by LMP and confirmed with 1st trimester US, who presents for elective induction. Chief complaint: IOL- Post dates : 2 Para: 1 Narrative: Zacarias Najera is a 33 year old at 40+5 weeks for elective induction at [facility]. She has had an uncomplicated . She is GBS negative, rubella immune rH +. She has been having some irregular non painful uterine contractions, but no LOF or painful regular contractions. Baby has been active History of Present Dating criteria: based on LMP care: good care Ultrasounds: normal 1st trimester US and normal mid trimester US Medical complications: none Labs Blood type: A (+) positive Rubella: immune RPR/VDLR: nonreactive GBS status: negative HBsAG: negative Review of Systems Status of ROS: Reports: 6 or more systems reviewed and unremarkable except as noted in History and below Meds Home Medications and Allergies Home Medications ?Medication ?Instructions ?Recorded ?Confirmed ?Type No Known Home Medications 05/14/24 05/14/24 History Allergies Allergy/AdvReac Type Severity Reaction Status Date / Time No Known Drug Allergies Allergy Verified 05/14/24 22:07 OB - H&P: Exam Physical Exam: Vital signs: Pulse BP 70 117/69 05/22/24 06:19 05/22/24 06:19 Constitutional: Constitutional: no acute distress Routine HEENT Exam: Head: Present atraumatic Eye: Present EOMI and PERRL ENT: Present mucous membranes moist Routine Neck Exam: Neck: Present full ROM Routine Respiratory Exam: Respiratory: Present CTA bilaterally Routine Cardiovascular Exam: Cardiovascular: RRR Routine Exam: Perineum Description: Normal Detailed Labor and Delivery Exam: Patient Gravid: Yes Dilation (cm): 4 Effacement (%): 70 Cervix position: anterior Consistency: soft Cervical ripeness score: 10 Fetus (Single): Station: -2 Amniotic Membrane Status: AROM Amniotic Membrane Fluid Description: Clear Heart Rate Baseline: 125 Monitor Accelerations: Present Monitor Decelerations: None Sodder Variability: Moderate (6-25) Routine Extremities Exam: Extremities: Present full ROM Routine Back/Spine/Pelvis Exam: Back/Spine: full ROM Routine Skin Exam: Present intact Routine Neurological Exam: Present alert, oriented X3 and CN II-XII intact Routine Psychiatric Exam: Present normal affect OB - Problem Based A/P Additional Plan (1) Term : Status: Acute Plan AROM completed with scant clear fluid. If she does not go into labor, will add pitocin. Epidural per patient request. Anticipate . Delivery/Labor/Induction Plan Plan: induction Induction method: AROM
[2024-05-22 08:15] LABS: Basophils Absolute Auto 0.03 K/uL (0.00-0.30); Basophils Percent Auto 0.3 % (0.0-3.0); Eosinophils Absolute Auto 0.04 K/uL (0.00-0.50); Eosinophils Percent Auto 0.4 % (0.0-7.0); Hematocrit 37.9 % (33.0-51.0); Hemoglobin* 12.6 gm/dL (12.0-16.0); Immature Granulocytes Abs Auto 0.07 K/uL (0.00-0.30); Immature Granulocytes Pct Auto 0.7 %; Lymphocytes Percent Auto 19.6 % (20-44); Mean Corpuscular HGB Conc 33 gm/dL (32-36); Mean Corpuscular Hemoglobin 31 pg (26-34); Mean Corpuscular Volume 94 fL (80-100); Monocytes Percent Auto 7.6 % (0.0-11.0); Neutrophils Absolute Auto 6.82 K/uL (1.7-7.0); Neutrophils Percent Auto 71.4 % (42.0-72.0); Platelet Count* 215 K/uL (140-440); RDW Coefficient of Variation % 13.5 % (11.5-15.5); Red Blood Count 4.02 m/uL (4.00-5.20); White Blood Count* 9.57 K/uL (4.50-11.00)
[2024-05-22 08:17] LABS: Slide Review Reflex No
[2024-05-22] MEDS: LACTATED RINGERS 1000 ML 1,000 ML 925 ML IV ×2 (12:09→12:56)
[2024-05-22] MEDS: ROPIVACAINE 0.2% 100 ml 100 ML 12 MG EPIDURAL (13:14)
[2024-05-22] MEDS: BUPIVACAINE 0.25% PF 10 ML 10 ML ML EPIDURAL (13:16)
--- NOTE | 2024-05-22 13:22 | P.ANBPRC_ITS ---
PFSH PFSH Social History What is your current living situation?: I presently have a place to live Problems where you live: no known problems In the past 12 months, utilities in danger of being shut off: no In past 12 months, lack of transportation kept you from medical appts, meetings, work, or getting things needed for daily living: no In the past 12 mos, have been you worried that your food would run out before you had money to buy more?: never true In the past 12 mos, the food you bought just didn't last and you didn't have money to buy more?: never true Smoking Status: Never smoker How often does anyone, including family, friends and others, physically hurt you : never How often does anyone, including family, friends and others, insult or talk down to you: never How often does anyone, including family, friends and others, threaten you with harm: never How often does anyone, including family, friends and others, scream or curse at you: never Meds Home Medications and Allergies Home Medications ?Medication ?Instructions ?Recorded ?Confirmed ?Type No Known Home Medications 05/14/24 05/14/24 History Allergies Allergy/AdvReac Type Severity Reaction Status Date / Time No Known Drug Allergies Allergy Verified 05/14/24 22:07 Results Labs Labs: Laboratory Results - last 24 hr 05/22/24 08:05 WBC 9.57 RBC 4.02 Hgb 12.6 Hct 37.9 MCV 94 MCH 31 MCHC 33 RDW Coeff of Manuela 13.5 Plt Count 215 Neut % (Auto) 71.4 Lymph % (Auto) 19.6 L [place] % (Auto) 7.6 Eos % (Auto) 0.4 Baso % (Auto) 0.3 Neut # (Auto) 6.82 Lymph # (Auto) 1.90 [place] # (Auto) 0.70 Eos # (Auto) 0.04 Baso # (Auto) 0.03 Abs Immat Gran (auto) 0.07 Imm/Tot Granulo (auto) 0.7 Vital Signs Vital Signs: Last Vital Signs Temp 97.8 F 05/22/24 11:10 Pulse 60 05/22/24 13:21 BP 102/56 L 05/22/24 13:21 Pulse Ox 100 05/22/24 13:21 Weight: 83.733 kg Height: 162.56 cm Anesthesia Procedures Epidural Insertion Patient Location: OB Start Time: 12:45 Stop Time: 13:15 Start Date: 05/22/24 Stop Date: 05/22/24 Reason for Block: procedure for pain Patient Position: sitting Performed By: Sheldon Mueller Preanesthetic Checklist: IV checked, risks and benefits discussed, monitors and equipment checked, pre-op evaluation, timeout performed and anesthesia consent Prep: chlorhexidine gluconate Monitoring: blood pressure monitoring, continuous pulse oximetry and heart rate Approach: midline Vertebral Space: lumbar (1-5) Epidural Technique: ABRAN saline Needle Type: Tuohy needle Injection Technique: continuous catheter Needle gauge: 17 Needle Length (cm): 10 cm Needle Insertion Depth (cm): 6 Catheter Gauge: 19 Catheter Type: multi-orifice Catheter at skin depth (cm): 12 Test Dose Result: negative and lidocaine 1.5% with epinephrine 1 to 200,000
[2024-05-22] MEDS: OXYTOCIN 30 unit/500 ML in NS 30 UNIT/500 ML BAG 325 UNIT IVPB (14:19)
--- NOTE | 2024-05-22 14:31 | W.PM.VAGDEL1 ---
Procedure Delivery date: 05/22/24 Procedure Done: Global Intrapartal Events: Labor Induction Delivery monitor: external uterine and internal FHT Route of delivery: vacuum extraction Indication for instrumentation: nonreassuring FHR tracing Episiotomy description: None Laceration description: Perineal - 1st Degree Delivery repair: Vicryl Estimated blood loss (mL): 25 Anesthesia type: Epidural Disposition: floor Narrative: The patient is a33 year-old admitted on 05/22/2024 at 40 Weeks, 5 Days gestation for IOL at term.? Cervical exam on admission was 4 cm/70 % effaced/-2 station with membranes intact in vertex presentation.? Contractions were rare.? heart rate demonstrated baseline 125 bpm with moderate variability, + accelerations, - decelerations; a category 1 tracing.? AROM occurred at 0707 with clear fluid. However at a subsequent check, the fluid was meconium stained ? Labor Analgesia:? epidural ? Pitocin:? post delivery ? Labor onset:? 1130 ? Complete:? 1338 ? Pushing:? 1340 ? heart tones during second stage were category 2 with recurrent decelerations to the 60s. ? At 1415 a viable female infant delivered in vertex OA presentation over intact perineum via vacuum assisted vaginal delivery due to nonreassuring heart tracing. Vacuum was placed at 1212 and was used through 1 contraction, three pushes.? was placed on maternal abdomen.? Cord was clamped and cut after a 30-60 second delay.? Nose and mouth were bulb suctioned.? Infant weight pending.? 8 at 1 minute and 9 at 5 minutes.? Shoulder dystocia: no.? Nuchal cord: yes, tight reduced after delivery. ? Placenta delivered spontaneously and complete at 1417 with a 3 vessel cord. ? Mother and infant were stable after delivery. ? Lacerations:? 1st degree, repaired with 3-0 vicryl suture, 2 interrupted sutures. ? Blood loss: 25 mL. Blood loss measurement type: QBL ? Sponge and needles counts are correct. [place] Infant Gender: Female presentation: vertex Placental Delivery Description: Spontaneous Cord Description: 3 Vessels, Nuchal Cord and Around Extremity x1
[2024-05-22] MEDS: LIDOCAINE 2% (PF) 5 ML VIAL 2 ML EPIDURAL (14:35)
[2024-05-22] MEDS: fentaNYL 100 MCG/2 ML inj EPIDURAL (14:36)
[2024-05-22] MEDS: IBUPROFEN 600 MG TABLET PO (17:31)
[2024-05-23 04:24] VITALS: BP 119/73; PULSE 70; RESP 18; TEMP 36.6; O2SAT 99
[2024-05-23 06:14] LABS: Hemoglobin* 11.2 gm/dL (12.0-16.0)
--- NOTE | 2024-05-23 07:49 | PM.OBDSVD1 ---
DS: Providers Provider Date Seen: 05/23/24 Date of admission: 05/22/24 06:01 Primary care physician: Petrona Mcfarland MD Admitting Clinician: Petrona Mcfarland MD Attending Physician on discharge: Petrona Mcfarland MD DS: Diagnosis Discharge Diagnosis (1) (normal spontaneous vaginal delivery): Status: Acute Exam Narrative: Exam Narrative: Gen: No acute distress CV: Regular rate and rhythm, normal S1,S2, no murmurs Resp: Normal rate and effort, clear to auscultation bilaterally Abd: Soft, uterus firm and nontender at umbilicus Ext: Warm, dry, 2+ pedal pulses, no edema bilaterally. Calves non-tender to palpation. Const: Vital Signs, click to edit/add: Vital Signs - 24 hr 05/22/24 08:24 05/22/24 10:01 05/22/24 10:01 Temperature 97.5 F L Pulse Rate 72 Pulse Rate [Pulse Oximeter] Respiratory Rate Blood Pressure 114/63 Blood Pressure [Le ft Arm] Pulse Oximetry 96 [facility]/24 11:10 05/22/24 12:27 05/22/24 12:29 Temperature 97.8 F Pulse Rate Pulse Rate [Pulse Oximeter] Respiratory Rate Blood Pressure Blood Pressure [Le ft Arm] Pulse Oximetry 100 93 Oxygen Delivery Me od 05/22/24 12:32 05/22/24 12:34 05/22/24 12:37 Temperature Pulse Rate Pulse Rate [Pulse Oximeter] Respiratory Rate Blood Pressure Blood Pressure [Le ft Arm] Pulse Oximetry 100 91 100 Oxygen Delivery Mo thod 05/22/24 12:42 05/22/24 12:47 05/22/24 12:52 Temperature Pulse Rate Pulse Rate [Pulse Oximeter] Respiratory Rate Blood Pressure Blood Pressure [Le ft Arm] Pulse Oximetry 99 99 99 Oxygen Delivery Me thod 05/22/24 12:57 05/22/24 12:59 05/22/24 13:03 Temperature Pulse Rate 62 Pulse Rate [Pulse Oximeter] Respiratory Rate Blood Pressure 124/60 Blood Pressure [Le ft Arm] Pulse Oximetry 99 99 Oxygen Delivery Mo thod 05/22/24 13:03 05/22/24 13:04 05/22/24 13:05 Temperature Pulse Rate 34 L 63 Pulse Rate [Pulse Oximeter] Respiratory Rate Blood Pressure 123/73 122/58 L Blood Pressure [Le ft Arm] Pulse Oximetry 91 Oxygen Delivery Mo thod 05/22/24 13:08 05/22/24 13:11 05/22/24 13:12 Temperature Pulse Rate 58 L 68 Pulse Rate [Pulse Oximeter] Respiratory Rate Blood Pressure 165/72 H 105/51 L Blood Pressure [Le ft Arm] Pulse Oximetry 100 Oxygen Delivery Mo thod 05/22/24 13:14 05/22/24 13:16 05/22/24 13:17 Temperature Pulse Rate 66 Pulse Rate [Pulse Oximeter] Respiratory Rate Blood Pressure 101/58 L Blood Pressure [Le ft Arm] Pulse Oximetry 100 90 Oxygen Delivery Mo thod 05/22/24 13:18 05/22/24 13:19 05/22/24 13:21 Temperature Pulse Rate 61 62 60 Pulse Rate [Pulse Oximeter] Respiratory Rate Blood Pressure 128/70 103/57 L 102/56 L Blood Pressure [Le ft Arm] Pulse Oximetry 100 Oxygen Delivery Mo thod 05/22/24 13:24 05/22/24 13:30 05/22/24 13:31 Temperature Pulse Rate 65 64 67 Pulse Rate [Pulse Oximeter] Respiratory Rate Blood Pressure 115/56 L 104/51 L 96/51 L Blood Pressure [Le ft Arm] Pulse Oximetry 86 L 100 Oxygen Delivery Mo thod 05/22/24 13:33 05/22/24 13:35 05/22/24 13:36 Temperature Pulse Rate 72 60 Pulse Rate [Pulse Oximeter] Respiratory Rate Blood Pressure 105/57 L 105/54 L Blood Pressure [Le ft Arm] Pulse Oximetry 81 L 95 Oxygen Delivery Mo thod 05/22/24 13:37 05/22/24 13:39 05/22/24 13:44 Temperature Pulse Rate 65 69 67 Pulse Rate [Pulse Oximeter] Respiratory Rate Blood Pressure 104/56 L 100/52 L 98/54 L Blood Pressure [Le ft Arm] Pulse Oximetry Oxygen Delivery Mo thod 05/22/24 13:48 05/22/24 13:49 05/22/24 13:54 Temperature Pulse Rate 66 68 62 Pulse Rate [Pulse Oximeter] Respiratory Rate Blood Pressure 102/51 L 100/55 L 119/56 L Blood Pressure [Le ft Arm] Pulse Oximetry Oxygen Delivery Mo thod 05/22/24 13:55 05/22/24 13:56 05/22/24 14:11 Temperature Pulse Rate 61 Pulse Rate [Pulse Oximeter] Respiratory Rate Blood Pressure 106/56 L Blood Pressure [Le ft Arm] Pulse Oximetry 96 93 Oxygen Delivery Me thod 05/22/24 14:15 05/22/24 14:25 05/22/24 14:39 Temperature 97.9 F Pulse Rate 83 Pulse Rate [Pulse Oximeter] Respiratory Rate Blood Pressure 100/48 L Blood Pressure [Le ft Arm] Pulse Oximetry 100 Oxygen Delivery Me thod 05/22/24 14:40 05/22/24 14:55 05/22/24 15:10 Temperature Pulse Rate 75 70 72 Pulse Rate [Pulse Oximeter] Respiratory Rate Blood Pressure 99/51 L 99/55 L 102/56 L Blood Pressure [Le ft Arm] Pulse Oximetry Oxygen Delivery Me thod 05/22/24 15:25 05/22/24 15:25 05/22/24 15:45 Temperature 97.9 F Pulse Rate 72 71 Pulse Rate [Pulse Oximeter] Respiratory Rate Blood Pressure 103/53 L 107/54 L Blood Pressure [Le ft Arm] Pulse Oximetry Oxygen Delivery Mo thod 05/22/24 15:55 05/22/24 16:10 05/22/24 20:01 Temperature 98.2 F Pulse Rate 77 Pulse Rate [Pulse Oximeter] 73 Respiratory Rate 18 Blood Pressure 113/55 L 102/54 L Blood Pressure [Le ft Arm] 137/80 Pulse Oximetry Oxygen Delivery Me thod Room Air 05/22/24 23:15 05/23/24 04:24 Temperature 98.6 F 97.9 F Pulse Rate Pulse Rate [Pulse Oximeter] 73 70 Respiratory Rate 18 18 Blood Pressure Blood Pressure [Le ft Arm] 124/73 119/73 Pulse Oximetry 99 Oxygen Delivery Me thod Room Air Room Air OB - DS: Summary Hospital Course Hospital Course: The patient is a 33 year old G 2 P 2 at 40.5 weeks gestation that was admitted to the Center on 05/22/24 for elective IOL. She had an uncomplicated vaginal delivery. Meconium stained fluid required vacuum. 1st degree perineal laceration repaired. She delivered a viable female infant. She is breast feeding. the patient has done well. Peripartum Data Infant delivery method: Vacuum Laceration description: Perineal - 1st Degree complications: none Infant Gender: Female Status at Discharge Functional status at discharge: independent ambulation Overall status at discharge: patient is progressing back to baseline Time Spent with Patient Time attestation: Total time spent providing and/or coordinating discharge services: Discharge Plan Discharge Disposition: Home, Self-Care Date of Admission: 05/22/24 06:01 Primary Care Provider: Petrona Mcfarland Condition: Stable Anticipated Discharge Date/Time: 05/23/24 15:35 Discharge Medications: No Action No Known Home Medications Discharge Orders: Discharge Order (Routine); Ordered 05/23/24 Ordered By: Beth Gray Patient Education: OB Care, OB Vaginal/Breast Feeding Activity Level: No Restrictions Discharge Diet: Regular Follow Up Appointments: Petrona Mcfarland MD [Primary Care Provider] - Forms: [employer] Info Instructions DS:Data Additional Comments Additional comments: - Pelvic rest for 6 weeks (no intercourse, tampons or douching), or until one week after vaginal bleeding stops. - Daily activities for the first week should be limited to taking care of patient and her baby, and only as tolerated. - Call MD if fever > 100.4 degrees, bleeding more than 1 pad / hour, foul-smelling discharge, passage of golf-ball sized blood clots, or worsening of pain not controlled by medications.
[2024-05-23 08:16] VITALS: BP 131/72; PULSE 72; RESP 18; O2SAT 96
[2024-05-23] MEDS: DOCUSATE SODIUM 100 MG CAPSULE PO (08:20)
[2024-05-23 12:00] VITALS: BP 120/74; PULSE 79; RESP 18; TEMP 36.9; O2SAT 96
== END 2024-05-23 17:40 | disposition home or self-care (01) | DRG 807 ==
PROVIDERS: Admitting Provider Family Medicine; PCP Family Medicine; Visit Provider Family Medicine
DX: O48.0 Post-term pregnancy (principal); Z37.0 Single live birth; O76 Abnormality in fetal heart rate and rhythm complicating labor and delivery; O77.0 Labor and delivery complicated by meconium in amniotic fluid; O70.0 First degree perineal laceration during delivery; Z3A.40 40 weeks gestation of pregnancy
CPT/HCPCS: 01967; 36415; 59025; 85018; 85025; 86592; A9270; J0665; J2371; J2795; J3010; J7120